=== PATIENT | female | born 1990 | race Caucasian/White ===

== ENCOUNTER 2019-10-23 17:00 | Inpatient (IN) ==
[2019-10-23] MEDS ORDERED: Famotidine 20 MG/2 ML VIAL IVP ONE (17:22)
[2019-10-23] MEDS ORDERED: CeFAZolin 2,000 MG/50 ML BAG IVPB ONE (17:22)
[2019-10-23] MEDS ORDERED: Ringers Solution, Lactated 1,000 ML IVC ONE (17:22)
[2019-10-23] MEDS ORDERED: Metoclopramide 10 MG/2 ML VIAL IVP ONE (17:22)
[2019-10-23] MEDS ORDERED: Ringers Solution, Lactated 1,000 ML IVC SCH (17:30)
[2019-10-23 17:49] LABS: Basophils % 0.2 %; Eosinophils # 0.1 K/mcL (0.0-0.6); Eosinophils % 0.5 %; Hematocrit 39.7 % (35.3-44.9); Hemoglobin 13.3 g/dL (11.5-15.4); Immature Granulocytes % 0.6 % (0-4); Lymphocytes # 1.8 K/mcL (0.6-4.6); Lymphocytes % 16.8 %; Mean Corpuscular HGB Conc 33.5 g/dL (31.6-35.5); Mean Corpuscular Hemoglobin 29.8 pg (28.0-33.3); Mean Corpuscular Volume 88.8 fL (83.0-100.0); Mean Platelet Volume 10.7 fL (9.4-12.4); Monocytes # 0.6 K/mcL (0.0-1.3); Monocytes % 5.9 %; Neutrophils # 8.1 K/mcL (1.6-8.9); Platelet Count 241 K/mcL (140-400); Red Blood Count 4.47 M/mcL (3.82-4.97); Red Cell Distribution Width 13.9 % (11.5-14.5); White Blood Count 10.6 K/mcL (4.3-11.1)
[2019-10-23 17:59] LABS: Amphetamine Screen,Urine Negative ng/mL (Cutoff=1000); Barbiturate Screen,Urine Negative ng/mL (Cutoff=200); Benzodiazepines Screen,Urine Negative ng/mL (Cutoff=200); Cannabinoid Screen,Urine Negative ng/mL (Cutoff = 50); Cocaine Screen,Urine Negative ng/mL (Cutoff= 300); Opiate Screen,Urine Negative ng/mL (Cutoff=300); Phencyclidine Screen,Urine Negative ng/mL (Cutoff=25)
[2019-10-23] MEDS ORDERED: *HR* Morphine Sulfate/PF 10 MG/10 ML AMPUL ONE (18:23)
[2019-10-23] MEDS ORDERED: *HR* FentaNYL (PF) 100 MCG/2 ML VIAL ONE (18:23)
[2019-10-23] MEDS ORDERED: EPHEDrine 50 MG/ML VIAL ONE (18:23)
[2019-10-23] MEDS ORDERED: *HR* Oxytocin 10 UNIT/ML VIAL IM ONE (18:24)
[2019-10-23] MEDS ORDERED: Ondansetron 4 MG/2 ML VIAL ONE (18:24)
[2019-10-23] MEDS ORDERED: Acetaminophen IV 1,000 MG/100 ML INFUS..BTL IVPB ONE (18:25)
[2019-10-23] MEDS ORDERED: *HR* HYDROmorphone PF 0.5 MG/0.5 ML SYRINGE IVP PRN (18:25)
[2019-10-23] MEDS ORDERED: *HR* Promethazine 25 MG/ML VIAL IVP PRN (18:25)
[2019-10-23] MEDS ORDERED: Ondansetron 4 MG/2 ML VIAL IVP PRN (18:25)
[2019-10-23 19:01] LABS: Alanine Aminotransferase 26 Units/L (7-52); Aspartate Amino Transferase 22 Units/L (13-39); BUN/Creatinine Ratio 13 (6-26); Blood Urea Nitrogen 7 mg/dL (6-20); Lactate Dehydrogenase 192 Units/L (140-271); Uric Acid 5.9 mg/dL (2.3-7.6); eGFR For African Americans > 60 (> 60); eGFR For Non-African Americans > 60 (> 60)
[2019-10-23 19:39] LABS: Protein/Creatinine Ratio,Urine 0.15 mg/mg (0.00-0.20)
[2019-10-23] MEDS ORDERED: Ringers Solution, Lactated 1,000 ML ONE (20:10)
[2019-10-23] MEDS ORDERED: Acetaminophen IV 1,000 MG/100 ML INFUS..BTL ONE (20:10)
[2019-10-24] MEDS ORDERED: Ondansetron 4 MG/2 ML VIAL IVP PRN (00:04)
[2019-10-24] MEDS ORDERED: Metoclopramide 10 MG/2 ML VIAL IVP PRN (00:04)
[2019-10-24] MEDS ORDERED: *HR* OxyCODONE/APAP 5/325 TABLET PO PRN (00:04)
[2019-10-24] MEDS ORDERED: Oxytocin 20 units/ LR 1000 mL 20 UNIT/1,000 ML BAG IVC SCH (00:04)
[2019-10-24] MEDS ORDERED: Rho Immune Globulin 1,500 UNIT SYRINGE IM ONE ×2 (00:04→15:30)
[2019-10-24] MEDS ORDERED: Sennosides 8.6 MG TABLET PO PRN (00:04)
[2019-10-24 05:31] LABS: Basophils % 0.3 %; Eosinophils % 0.2 %; Hematocrit 33.6 % (35.3-44.9); Hemoglobin 10.8 g/dL (11.5-15.4); Immature Granulocytes % 0.4 % (0-4); Lymphocytes # 1.6 K/mcL (0.6-4.6); Lymphocytes % 14.1 %; Mean Corpuscular HGB Conc 32.1 g/dL (31.6-35.5); Mean Corpuscular Hemoglobin 29.3 pg (28.0-33.3); Mean Corpuscular Volume 91.1 fL (83.0-100.0); Mean Platelet Volume 10.9 fL (9.4-12.4); Monocytes # 0.6 K/mcL (0.0-1.3); Neutrophils # 8.8 K/mcL (1.6-8.9); Platelet Count 196 K/mcL (140-400); Red Blood Count 3.69 M/mcL (3.82-4.97); Red Cell Distribution Width 14.2 % (11.5-14.5)
[2019-10-24] MEDS: Ibuprofen 600 MG TABLET PO PRN ×2 (06:07→18:45)
[2019-10-24] MEDS: Prenatal Vit/FA 1 EACH TABLET PO SCH (07:59)
[2019-10-24] MEDS: Simethicone 80 MG TAB.CHEW PO PRN ×2 (13:54→18:47)
[2019-10-24] MEDS: Acetaminophen 325 MG TABLET PO PRN (21:53)
[2019-10-25] MEDS: Ibuprofen 600 MG TABLET PO PRN ×2 (01:38→07:57)
[2019-10-25] MEDS: Acetaminophen 325 MG TABLET PO PRN (04:33)
[2019-10-25] MEDS ORDERED: Lanolin 7 G OINT...G. TP PRN (04:40)
[2019-10-25] MEDS: Prenatal Vit/FA 1 EACH TABLET PO SCH (07:57)
[2019-10-25 08:03] VITALS: BP 126/84
== END 2019-10-25 13:17 | disposition home or self-care (01) | DRG 784 ==
LOC: 1NENULAB 17:01 → 1NENUOBS 10-24 00:03
PROVIDERS: ADMIT Student in an Organized Health Care Education/Training Program; ATTEND Student in an Organized Health Care Education/Training Program